=== PATIENT | female | born 1955 | race Caucasian/White ===

== ENCOUNTER 2024-03-18 05:19 | Emergency (ER) | payer MEDICARE, BC ==
[~2024-03-18] VITALS: Ht 149.8 cm; Wt 43.5 kg
[2024-03-18 06:01] LABS: BASO % 0.6 % (0.0-1.0); EOS # 0.1 10*3/uL (0.0-0.4); EOS % 0.9 % (1.0-4.0); HEMATOCRIT 39.2 % (37.0-47.0); LYMPH # 0.9 10*3/uL (1.3-4.4); LYMPH % 12.6 % (27.0-41.0); MEAN CORPUSCULAR HGB 32.1 pg (27.0-31.0); MEAN CORPUSCULAR HGB CONC 34.2 g/dl (33.0-37.0); MEAN PLATELET VOLUME 9.6 fl (9.6-12.3); MONO # 0.7 10*3/uL (0.1-1.0); MONO % 9.4 % (3.0-9.0); NEUT # 5.3 10*3/uL (2.3-7.9); NEUT % 76.1 % (47.0-73.0); PLATELET COUNT AUTOMATED 214 10*3/uL (130-400); RED BLOOD COUNT 4.17 10*6/uL (4.10-5.10); RED CELL DISTRI WIDTH 11.9 % (0-14.5); WHITE BLOOD COUNT 6.9 10*3/uL (4.8-10.8)
[2024-03-18 06:04] LABS: ALKALINE PHOSPHATASE 107 U/L (46-116); BUN 12 mg/dl (9-23); CHLORIDE 91 mmol/L (98-107); SGPT/ALT 45 U/L (5-49); TOTAL PROTEIN 7.9 gm/dL (6.0-8.0)
[2024-03-18] MEDS ORDERED: SODIUM CHLORIDE 0.9% 1,000 ML IV ONE (06:45)
[2024-03-18] MEDS ORDERED: AMITRIPTYLINE10 MG PO (06:54)
[2024-03-18] MEDS ORDERED: AMLODIPINE BESYL5 MG PO (06:54)
[2024-03-18] MEDS ORDERED: LORAZEPAM0.5 M1 PO (06:55)
[2024-03-18] MEDS ORDERED: MELOXICAM7.5 MG PO (06:55)
[2024-03-18] MEDS ORDERED: CYCLOBENZAPRINE5 M3 PO (06:56)
[2024-03-18] MEDS ORDERED: SINGULAIR10 M1 PO (06:57)
[2024-03-18] MEDS ORDERED: SAFFRON176.5 MG PO (06:58)
[2024-03-18] MEDS ORDERED: ALLER-TEC10 MG PO (07:00)
[2024-03-18] MEDS ORDERED: BENICAR20 MG PO (07:00)
[2024-03-18] MEDS ORDERED: GABAPENTIN100 M2 PO (07:01)
[2024-03-18] MEDS ORDERED: ALLER-FLO15.8 ML NAS (07:02)
[2024-03-18] MEDS ORDERED: Dicyclomine Hydrochloride 20 MG/10 ML OSYR PO STA (08:05)
[2024-03-18] MEDS ORDERED: Lidocaine Hydrochloride 15 ML UDC PO STA (08:05)
[2024-03-18] MEDS ORDERED: MG-AL HYDROXIDE/SIMETICONE 30 ML UDC PO STA (08:05)
[2024-03-18] MEDS ORDERED: Ondansetron4 MG PO (08:37)
== END 2024-03-18 08:04 | disposition home or self-care (01) ==
LOC: ED 05:19
PROVIDERS: Internal Medicine
DX: K21.9 Gastro-esophageal reflux disease without esophagitis (principal); Z20.822 Contact with and (suspected) exposure to COVID-19; B34.9 Viral infection, unspecified; R07.89 Other chest pain; R11.2 Nausea with vomiting, unspecified; R19.7 Diarrhea, unspecified; Z88.8 Allergy status to other drugs, medicaments and biological substances